=== PATIENT | male | born 1990 | race Caucasian/White ===

== ENCOUNTER 2016-12-28 12:03 | Emergency (ER) | payer OTHER ==
[~2016-12-28] VITALS: Ht 182.9 cm; Wt 86.2 kg
[2016-12-28 12:14] VITALS: BP 145/72
--- NOTE | 2016-12-28 13:03 | ED HAND/WRIST INJURY COMPLAINT ---
History of Present Illness General Chief Complaint: Laceration Procedure Stated Complaint: LAC TO AT WORK Source: patient Exam Limitations: no limitations Vital Signs & Intake/Output Vital Signs & Intake/Output Vital Signs Date Time Temp Pulse Resp B/P B/P Pulse O2 O2 Flow FiO2 Mean Ox Delivery Rate 12/28 1214 97.6 76 18 145/72 100 Room Air Room Air Allergies Coded Allergies: No Known Allergies (12/28/16) Triage Note: TRIAGE: 26 Y/O MALE PRESENTS C/O LAC TO LEFT INDEX FINGER X10 MINUTES PRIOR TO ARRIVAL. BLEEDING CONTINUES. DRESSING APPLIED. LAST TETANUS ?MAYBE A YEAR AGO. Triage Nurses Notes Reviewed? yes Occurred: just prior to arrival Duration: hour(s):, constant, continues in ED Timing: recent history Injury Environment: home Severity: moderate, severe Pain/Injury Location: Left: 2nd finger. Method of Injury: laceration No Modifying Factors: none HPI: 26-year-old male comes into emergency room for further evaluation of laceration to left index finger after cutting it with a knife at work today by accident. Tetanus shot up-to-date. Sharp throbbing pain. Some associated bleeding. Denies any other associated symptoms. Past History Travel History Traveled to [place] past 21 day No Medical History Any Pertinent Medical History? see below for history Neurological: NONE EENT: NONE Cardiovascular: NONE Respiratory: NONE Gastrointestinal: NONE Hepatic: NONE Renal: NONE Musculoskeletal: NONE Psychiatric: NONE Endocrine: NONE Blood Disorders: NONE Cancer(s): NONE [employer]/Reproductive: NONE Surgical History Surgical History: non-contributory Psychosocial History What is your primary language [place] Tobacco Use: Never used ETOH Use: occasional use Illicit Drug Use: denies illicit drug use Family History Hx Contributory? No Review of Systems Review of Systems Constitutional: Reports: no symptoms. EENTM: Reports: no symptoms. Respiratory: Reports: no symptoms. Cardiovascular: Reports: no symptoms. GI: Reports: no symptoms. Genitourinary: Reports: no symptoms. Musculoskeletal: Reports: see HPI. Skin: Reports: see HPI. Neurological/Psychological: Reports: no symptoms. Hematologic/Endocrine: Reports: no symptoms. Immunologic/Allergic: Reports: no symptoms. All Other Systems: Reviewed and Negative Physical Exam Physical Exam General Appearance: well developed/nourished, mild distress Head: atraumatic Eyes: Bilateral: normal appearance. Ears, Nose, Throat: normal ENT inspection, hearing grossly normal Neck: normal inspection Cardiovascular/Respiratory: no respiratory distress Back: normal inspection Hand Left: 2nd finger, Superficial half centimeter laceration/flap extending through lateral nail to distal phalanx Hand Right: normal inspection Neurologic/Tendon: normal sensation, normal motor functions, normal tendon functions, responds to pain, no evidence tendon injury, no pulse deficit Skin: intact, normal color, warm/dry Lymphatic: no anterior cervical noreen Progress Differential Diagnosis: dislocation, felon, fracture, gout, septic arthritis, sprain, tenosynovitis Plan of Care: 12/28/2016 1:23:15 PM Patient clinically looks well. Nontoxic-appearing. 2 superficial to suture. Leading well controlled. Steri-Strips use. Compression wrap placed. Departure Departure Disposition: HOME OR SELF CARE Condition: Stable Clinical Impression Primary Impression: Finger laceration Referrals: PATIENT HAS NO PRIMARY CARE DR (PCP/Family) Additional Instructions: Keep dressing in place for 3 days. Soak in warm water and let dressing fall off on its own in 3 days. Watch for signs of infection such as redness, discharge. Departure Forms: Customer [employer] [facility] General Discharge Information Procedures Laceration/Wound Repair Progress: Superficial half centimeter laceration left index finger, Steri-Strips, irrigated with peroxide and saline, sterile dressing, finger splint placed
== END 2016-12-28 13:23 ==
LOC: ERH 12:03
DX: S61.211A Laceration without foreign body of left index finger without damage to nail, initial encounter (principal); W26.0XXA Contact with knife, initial encounter; Y93.9 Activity, unspecified; Y92.9 Unspecified place or not applicable
CPT/HCPCS: 99282